=== PATIENT | female | born 1940 | race Two or more races ===

== ENCOUNTER → 2024-01-05 09:12 | Outpatient (CLI) | payer OTHER | END | disposition home or self-care (01) | LOC: NUCLEAR 09:12 | PROVIDERS: ATTEND Family Medicine Geriatric Medicine | DX: R01.1 Cardiac murmur, unspecified (principal); R00.2 Palpitations; R06.09 Other forms of dyspnea ==

== ENCOUNTER 2024-01-05 11:15 | Outpatient (CLI) | payer OTHER | END 2024-01-05 11:20 | disposition home or self-care (01) | LOC: RAD 11:15 | PROVIDERS: ATTEND Family Medicine Geriatric Medicine | DX: H57.11 Ocular pain, right eye (principal); R09.81 Nasal congestion ==